=== PATIENT | female | born 1965 | race Caucasian/White ===

== ENCOUNTER 2017-02-04 19:27 | Emergency (ER) | payer OTHER | END 2017-02-04 22:01 | disposition left against medical advice (07) | LOC: ED 19:27 | DX: M79.89 Other specified soft tissue disorders (principal); E03.9 Hypothyroidism, unspecified; Z53.20 Procedure and treatment not carried out because of patient's decision for unspecified reasons; Z79.899 Other long term (current) drug therapy ==